=== PATIENT | male | born 1940 | race Caucasian/White ===

== ENCOUNTER 2016-08-03 12:56 | Inpatient (IN) | payer OTHER, MEDICARE ==
[~2016-08-03] VITALS: Ht 180.3 cm; Wt 104.6 kg
[2016-08-03] MEDS ORDERED: PROVENTIL,2.5 MG/3 M IH (14:14)
[2016-08-03] MEDS ORDERED: PRIMIDONE50 MG PO (14:14)
[2016-08-03] MEDS ORDERED: BREO ELLIPTA I1 EACH IH (14:15)
[2016-08-03] MEDS ORDERED: PROAIR HFA8.5 GM IH (14:21)
[2016-08-03] MEDS ORDERED: SPIRIVA1 INHALATI IH (14:23)
[2016-08-03] MEDS ORDERED: METOLAZONE5 MG PO (14:24)
[2016-08-03] MEDS ORDERED: BUMETANIDE1 MG PO ×2 (14:24→16:36)
[2016-08-03] MEDS ORDERED: ALLOPURINOL100 MG PO (14:24)
[2016-08-03] MEDS ORDERED: METOPROLOL SUCC25 MG PO (14:25)
[2016-08-03] MEDS ORDERED: ATORVASTATIN CA20 MG PO (14:26)
[2016-08-03] MEDS ORDERED: ROCALTROL0.25 MCG PO (14:26)
[2016-08-03] MEDS ORDERED: DERMAWERX SDS1 EACH TP (14:27)
[2016-08-03] MEDS ORDERED: COUMADIN1 MG PO (14:28)
[2016-08-03 14:57] LABS: CHLORIDE 104 mEq/L (99-109); POTASSIUM 4.1 mEq/L (3.7-5.4); SODIUM 140 mEq/L (136-147)
[2016-08-03 14:59] LABS: GLUCOSE 65 mg/dL (70-99)
[2016-08-03 15:00] LABS: ANION GAP 17 MEQ/L (2-14)
[2016-08-03 15:03] LABS: GFR ESTIMATE (CALCULATED) 8 mL/min/
[2016-08-03 15:08] LABS: UREA NITROGEN (BUN) 102 mg/dL (9-23)
[2016-08-03 15:11] LABS: TROP-I INTERPRETATION NEGATIVE; TROPONIN-I 0.07 ng/mL (0.0-0.30)
[2016-08-03 15:27] LABS: HEMATOCRIT 26.9 % (38.0-50.0); MCH 30.5 PG (29.0-34.0); MCHC 34.2 G/DL (30.0-36.0); MCV 89.1 FL (86-99); MEAN PLAT.VOLUME 12.5 uM^3 (9.0-12.4); PLATELET COUNT 89 K/uL (156-360); RBC DIS.WIDTH-CV 15.4 % (11.8-14.6); RBC DIS.WIDTH-SD 48.5 % (39-53); RED BLOOD COUNT 3.02 M/uL (4.00-5.50); WHITE BLOOD COUNT 4.7 K/uL (4.1-10.2)
[2016-08-03] MEDS ORDERED: COUMADIN5 MG PO (16:34)
[2016-08-03] MEDS ORDERED: PRESERVISION A1 EAC2 PO (16:37)
[2016-08-03] MEDS ORDERED: ELIQUIS5 MG PO (16:37)
[2016-08-03 18:49] LABS: MAGNESIUM 2.4 mg/dL (1.3-2.7)
[2016-08-03 18:55] LABS: CREATINE KINASE 64 IU/L (1-294)
[2016-08-03 20:14] LABS: ADD MIUA? NO; BILIRUBIN NEGATIVE; BLOOD NEGATIVE; COLOR YELLOW ((YELLOW)); GLUCOSE (STRIP) NEGATIVE; KETONES NEGATIVE; LEUKOCYTES NEGATIVE; NITRITE NEGATIVE; PH, URINE 5.5 (5-8); PROTEIN (STRIP) NEGATIVE; SPECIFIC GRAVITY 1.013 (1.000-1.030); UCUL ADDED? NO; UROBILINOGEN 0.2 MG/DL (0.2-1.0)
[2016-08-03 20:27] LABS: UR CREATININE CONCENTRATION 90.1 MG/DL
[2016-08-03 22:45] VITALS: BP 148/78
[2016-08-04 03:42] VITALS: BP 137/74
[2016-08-04 07:04] LABS: EOSINOPHIL COUNT 0.1 K/uL (0-0.3); LYMPHOCYTE COUNT 0.4 K/uL (1.0-2.8); MONOCYTE (%) 6.5 % (3-12); MONOCYTE COUNT 0.2 K/uL (0-0.8); NEUTROPHIL (%) 78.9 % (45-76); NEUTROPHIL COUNT 2.9 K/uL (1.8-6.4)
[2016-08-04 07:31] LABS: C3 COMPLEMENT 114 MG/DL (58-170); C4 COMPLEMENT 25 MG/DL (10-40)
[2016-08-04 07:45] LABS: ANION GAP 14 MEQ/L (2-14); CHLORIDE 103 MEQ/L (99-109); GFR ESTIMATE (CALCULATED) 8 mL/min/; MAGNESIUM 2.4 mg/dl (1.3-2.7); POTASSIUM 4.2 MEQ/L (3.7-5.4); SAMPLE HEMOLYSIS CHECK 0; SAMPLE ICTERIC CHECK 0; SAMPLE LIPEMIA CHECK 0; SODIUM 139 MEQ/L (136-147); UREA NITROGEN (BUN) 98 mg/dL (9-23); URIC ACID 6.3 mg/dL (3.1-9.2)
[2016-08-04 07:46] LABS: GLUCOSE 106 mg/dL (70-99)
[2016-08-04 07:53] LABS: MCH 29.3 PG (29.0-34.0); MCHC 33.3 G/DL (30.0-36.0); MCV 87.9 FL (86-99); RBC DIS.WIDTH-CV 15.9 % (11.8-14.6); RBC DIS.WIDTH-SD 50.6 % (39-53); RED BLOOD COUNT 2.73 M/uL (4.00-5.50); WHITE BLOOD COUNT 3.7 K/uL (4.1-10.2)
[2016-08-04 07:55] VITALS: BP 126/85
[2016-08-04 08:19] LABS: MEAN PLAT.VOLUME 13.4 uM^3 (9.0-12.4); PLAT.SUFFICIENCY DECREASED; PLATELET COUNT 78 K/uL (156-360); USER ID TLW
[2016-08-04 08:26] LABS: INTER. NORMALIZED RATIO 1.6; PROTHROMBIN TIME 16.6 (9.2-11.2); PTT 52.5 (25-32)
[2016-08-04 11:46] VITALS: BP 128/84
[2016-08-04 11:56] LABS: HBSG INDEX 0.23; HPCA INDEX 0.17
[2016-08-04 11:57] LABS: ANTI-HEPATITIS A VIRUS (IGM) Nonreactive; HAV INDEX 0.27
[2016-08-04 11:58] LABS: ANTI-HEPATITIS B CORE (IGM) Nonreactive; HBC IgM INDEX 0.14
[2016-08-04 12:05] LABS: GLOBULINS 2.1 G/DL (2.3-3.5)
[2016-08-04 12:14] LABS: POINT-OF-CARE METER ID UU14188625
[2016-08-04] MEDS ORDERED: GLIPIZIDE5 MG PO (13:45)
[2016-08-04 15:05] VITALS: BP 132/67
[2016-08-04 20:00] VITALS: BP 143/80
[2016-08-04 22:42] LABS: POINT-OF-CARE METER ID UU14174225
[2016-08-05] VITALS: BP 141/80
[2016-08-05 04:02] VITALS: BP 121/68
[2016-08-05 04:36] LABS: POINT-OF-CARE METER ID UU14188625
[2016-08-05 06:35] LABS: POINT-OF-CARE METER ID UU14188625
[2016-08-05 07:24] LABS: EOSINOPHIL (%) 3.9 % (0-5); EOSINOPHIL COUNT 0.1 K/uL (0-0.3); LYMPHOCYTE COUNT 0.4 K/uL (1.0-2.8); MONOCYTE (%) 9.7 % (3-12); MONOCYTE COUNT 0.4 K/uL (0-0.8); NEUTROPHIL COUNT 2.7 K/uL (1.8-6.4)
[2016-08-05 07:56] LABS: ANION GAP 12 MEQ/L (2-14); CHLORIDE 103 MEQ/L (99-109); GFR ESTIMATE (CALCULATED) 8 mL/min/; GLUCOSE 87 mg/dL (70-99); POTASSIUM 4.2 MEQ/L (3.7-5.4); SAMPLE HEMOLYSIS CHECK 0; SAMPLE ICTERIC CHECK 0; SAMPLE LIPEMIA CHECK 0; SODIUM 138 MEQ/L (136-147)
[2016-08-05 08:01] LABS: UREA NITROGEN (BUN) 107 mg/dL (9-23)
[2016-08-05 08:03] LABS: HEMATOCRIT 22.5 % (38.0-50.0); MCH 29.5 PG (29.0-34.0); MCHC 33.8 G/DL (30.0-36.0); MCV 87.2 FL (86-99); RBC DIS.WIDTH-CV 15.7 % (11.8-14.6); RBC DIS.WIDTH-SD 50.1 % (39-53); RED BLOOD COUNT 2.58 M/uL (4.00-5.50); WHITE BLOOD COUNT 3.6 K/uL (4.1-10.2)
[2016-08-05 08:05] LABS: PLAT.SUFFICIENCY DECREASED; PLATELET COUNT 70 K/uL (156-360); USER ID CL
[2016-08-05 14:32] LABS: ALBUMIN PERCENT 65.1 %; ALPHA-1 GLOBULIN 0.28 G/DL (0.15-0.40); ALPHA-1 PERCENT 4.9 %; ALPHA-2 GLOBULIN 0.49 G/DL (0.45-0.85); ALPHA-2 PERCENT 8.6 %; BETA PERCENT 8.6 %
[2016-08-05 14:33] LABS: ALBUMIN 3.71 G/DL (3.6-4.9); GAMMA PERCENT 12.8 %
[2016-08-05 16:14] VITALS: BP 123/66
[2016-08-05 16:52] LABS: TYPE OF FLUID PLEURAL
[2016-08-05 16:58] LABS: TYPE OF FLUID PLEURAL
[2016-08-05 17:09] LABS: BODY FLUID RBC'S 2000 /MM^3 (0-100); BODY FLUID WBC'S 166 /MM^3 (0-500)
[2016-08-05 17:10] LABS: BODY FLUID RBC'S 12000 /MM^3 (0-100); BODY FLUID WBC'S 221 /MM^3 (0-500)
[2016-08-05 17:31] LABS: BODY FLUID EOSINOPHILS 2 % (0-25); MONO RAW COUNT 52; MONONUCLEAR WBC'S 52 %; POLY RAW COUNT 46; POLYNUCLEAR WBC'S 46 % (0-25)
[2016-08-05 17:34] LABS: BODY FLUID EOSINOPHILS 0 % (0-25); MONO RAW COUNT 60; MONONUCLEAR WBC'S 60 %; POLY RAW COUNT 40; POLYNUCLEAR WBC'S 40 % (0-25)
[2016-08-05 17:52] LABS: BODY FLUID LDH 37 IU/L; BODY FLUID LDH 41 IU/L; BODY FLUID PROTEIN < 3.0 G/DL
[2016-08-05 20:00] VITALS: BP 120/71
[2016-08-05 21:09] LABS: POINT-OF-CARE METER ID UU14188625
[2016-08-06] VITALS: BP 106/64
[2016-08-06 04:00] VITALS: BP 126/67
[2016-08-06 07:01] LABS: POINT-OF-CARE METER ID UU14174225
[2016-08-06 07:32] LABS: EOSINOPHIL (%) 3.5 % (0-5); EOSINOPHIL COUNT 0.2 K/uL (0-0.3); IMMATURE GRANULOCYTE (%) 0.2 % (0.0-0.7); LYMPHOCYTE COUNT 0.5 K/uL (1.0-2.8); MONOCYTE (%) 6.7 % (3-12); MONOCYTE COUNT 0.3 K/uL (0-0.8); NEUTROPHIL (%) 76.9 % (45-76); NEUTROPHIL COUNT 3.3 K/uL (1.8-6.4)
[2016-08-06 07:58] LABS: ANION GAP 13 MEQ/L (2-14); CHLORIDE 103 MEQ/L (99-109); GFR ESTIMATE (CALCULATED) 10 mL/min/; GLUCOSE 92 mg/dL (70-99); SAMPLE HEMOLYSIS CHECK 0; SAMPLE ICTERIC CHECK 0; SAMPLE LIPEMIA CHECK 0; SODIUM 140 MEQ/L (136-147); UREA NITROGEN (BUN) 73 mg/dL (9-23)
[2016-08-06 08:05] LABS: MCH 29.6 PG (29.0-34.0); MCHC 33.5 G/DL (30.0-36.0); MCV 88.5 FL (86-99); MEAN PLAT.VOLUME 12.8 uM^3 (9.0-12.4); PLATELET COUNT 66 K/uL (156-360); RBC DIS.WIDTH-SD 51.1 % (39-53); WHITE BLOOD COUNT 4.3 K/uL (4.1-10.2)
[2016-08-06 08:21] LABS: HEMATOCRIT 23.7 % (38.0-50.0); MCH 29.5 PG (29.0-34.0); MCHC 33.3 G/DL (30.0-36.0); MCV 88.4 FL (86-99); RBC DIS.WIDTH-SD 51.3 % (39-53); RED BLOOD COUNT 2.68 M/uL (4.00-5.50); WHITE BLOOD COUNT 4.3 K/uL (4.1-10.2)
[2016-08-06 08:27] LABS: ANION GAP 14 MEQ/L (2-14); CHLORIDE 104 MEQ/L (99-109); GFR ESTIMATE (CALCULATED) 10 mL/min/; POTASSIUM 3.9 MEQ/L (3.7-5.4); SAMPLE HEMOLYSIS CHECK 0; SAMPLE ICTERIC CHECK 0; SAMPLE LIPEMIA CHECK 0; SODIUM 140 MEQ/L (136-147); UREA NITROGEN (BUN) 72 mg/dL (9-23)
[2016-08-06 08:27] LABS: MEAN PLAT.VOLUME 13.1 uM^3 (9.0-12.4); PLAT.SUFFICIENCY DECREASED
[2016-08-06 08:28] LABS: GLUCOSE 166 mg/dL (70-99)
[2016-08-06 08:34] LABS: PLATELET COUNT UNABLE TO REPORT K/uL (156-360)
[2016-08-06 11:41] VITALS: BP 140/76
[2016-08-06 13:23] VITALS: BP 123/68
[2016-08-06 16:00] VITALS: BP 121/68
[2016-08-06 20:07] VITALS: BP 130/64
[2016-08-07 00:08] VITALS: BP 128/82
[2016-08-07 08:43] LABS: EOSINOPHIL (%) 1.8 % (0-5); EOSINOPHIL COUNT 0.1 K/uL (0-0.3); IMMATURE GRANULOCYTE (%) 0.2 % (0.0-0.7); LYMPHOCYTE COUNT 0.4 K/uL (1.0-2.8); MONOCYTE (%) 8.9 % (3-12); MONOCYTE COUNT 0.5 K/uL (0-0.8); NEUTROPHIL (%) 81.2 % (45-76); NEUTROPHIL COUNT 4.1 K/uL (1.8-6.4)
[2016-08-07 08:48] LABS: HEMATOCRIT 23.5 % (38.0-50.0); MCH 30.2 PG (29.0-34.0); MCHC 33.6 G/DL (30.0-36.0); MCV 89.7 FL (86-99); RBC DIS.WIDTH-CV 16.2 % (11.8-14.6); RED BLOOD COUNT 2.62 M/uL (4.00-5.50)
[2016-08-07 09:00] LABS: ANION GAP 12 MEQ/L (2-14); CHLORIDE 104 MEQ/L (99-109); GFR ESTIMATE (CALCULATED) 13 mL/min/; GLUCOSE 141 mg/dL (70-99); IRON 24 MCG/DL (35-150); POTASSIUM 3.8 MEQ/L (3.7-5.4); SAMPLE HEMOLYSIS CHECK 0; SAMPLE ICTERIC CHECK 0; SAMPLE LIPEMIA CHECK 0; SODIUM 140 MEQ/L (136-147); UREA NITROGEN (BUN) 52 mg/dL (9-23)
[2016-08-07 09:15] LABS: FERRITIN 70 NG/ML (22-322)
[2016-08-07 09:16] LABS: MEAN PLAT.VOLUME 13.1 uM^3 (9.0-12.4); PLAT.SUFFICIENCY DECREASED; PLATELET COUNT 58 K/uL (156-360)
[2016-08-07 09:20] VITALS: BP 137/77
[2016-08-07 12:17] LABS: POINT-OF-CARE USER ID 612031313
[2016-08-07] MEDS ORDERED: METOLAZONE5 MG PO (12:47)
[2016-08-07] MEDS ORDERED: ELIQUIS5 MG PO (12:47)
[2016-08-07] MEDS ORDERED: BUMETANIDE1 MG PO (12:47)
[2016-08-08 21:43] LABS: Neutrophil Cytoplasmic Aby P-ANCA POS (Negative)
== END 2016-08-07 14:35 | disposition home health service (06) | DRG 683 ==
LOC: EME 12:56 → EDOF 17:50 → 5SOUTH 17:50
PROVIDERS: Emergency Medicine; Internal Medicine; Internal Medicine Cardiovascular Disease; Internal Medicine Nephrology; Radiology Diagnostic Radiology; Student in an Organized Health Care Education/Training Program
DX: N17.9 Acute kidney failure, unspecified (principal); J90 Pleural effusion, not elsewhere classified; N04.9 Nephrotic syndrome with unspecified morphologic changes; I13.0 Hypertensive heart and chronic kidney disease with heart failure and stage 1 through stage 4 chronic kidney disease, or unspecified chronic kidney disease; N18.4 Chronic kidney disease, stage 4 (severe); E11.22 Type 2 diabetes mellitus with diabetic chronic kidney disease; R18.8 Other ascites; I50.9 Heart failure, unspecified; D63.1 Anemia in chronic kidney disease; G89.18 Other acute postprocedural pain; J44.9 Chronic obstructive pulmonary disease, unspecified; E78.5 Hyperlipidemia, unspecified; I48.2 Chronic atrial fibrillation; I27.2 Other secondary pulmonary hypertension; F32.9 Major depressive disorder, single episode, unspecified; G25.0 Essential tremor; M10.9 Gout, unspecified; K74.60 Unspecified cirrhosis of liver; K42.9 Umbilical hernia without obstruction or gangrene; E66.9 Obesity, unspecified; Z68.32 Body mass index [BMI] 32.0-32.9, adult; D69.6 Thrombocytopenia, unspecified; Z87.891 Personal history of nicotine dependence; Z79.01 Long term (current) use of anticoagulants
CPT/HCPCS: 36415; 71020; 74176; 76770; 80048; 80048 91; 80061; 80069; 80074; 80076; 81003; 82550; 82550 91; 82570; 82607; 82728; 82746; 82948; 83036 GA; 83540; 83615 91; 83735; 83883 90; 83970; 84156; 84157; 84165; 84439; 84443; 84466; 84484; 84550; 85025; 85027; 85610; 85730; 86021 90; 86038; 86160; 86162 90; 87070; 87075; 87205; 88108; 88305; 89051; 93005; 93306; 94640; 94640 76; 94799; 99202; 99281; 99285; C1894; J0690; J0881; J1644; J1815; J2250; J3010; S0020

== ENCOUNTER → 2016-09-03 | Outpatient (CLI) | payer OTHER, MEDICARE ==
[~2016-09-03] MED LIST: ALLOPURINOL100 MG PO; ATORVASTATIN CA20 MG PO; BREO ELLIPTA I1 EACH IH; BUMETANIDE1 MG PO; COUMADIN1 MG PO; COUMADIN5 MG PO; DERMAWERX SDS1 EACH TP; ELIQUIS5 MG PO; GLIPIZIDE5 MG PO; METOLAZONE5 MG PO; METOPROLOL SUCC25 MG PO; PRESERVISION A1 EAC2 PO; PRIMIDONE50 MG PO; PROAIR HFA8.5 GM IH; PROVENTIL,2.5 MG/3 M IH; ROCALTROL0.25 MCG PO; SPIRIVA1 INHALATI IH
[2016-09-03 08:37] LABS: TYPE OF FLUID PARACENTESIS
[2016-09-03 10:02] LABS: BODY FLUID RBC'S 2000 /MM^3 (0-100); BODY FLUID WBC'S 244 /MM^3 (0-500)
[2016-09-03 10:05] LABS: BODY FLUID EOSINOPHILS 0 % (0-25); MONO RAW COUNT 108; MONONUCLEAR WBC'S 54 %; POLY RAW COUNT 92; POLYNUCLEAR WBC'S 46 % (0-25)
== END | disposition home or self-care (01) ==
LOC: RAD 08-24 13:15
PROVIDERS: Radiology Diagnostic Radiology
PROC: 0W9G3ZZ Drainage of Peritoneal Cavity, Percutaneous Approach (ICD-10-PCS; principal; 2016-09-03)
DX: R18.8 Other ascites (principal); K70.30 Alcoholic cirrhosis of liver without ascites
CPT/HCPCS: 84157; 87070; 87205; 88108; 89051

== ENCOUNTER → 2016-09-15 | Outpatient (CLI) | payer OTHER, MEDICARE ==
[2016-09-15 08:47] LABS: POINT-OF-CARE METER ID UU14174212
[2016-09-15 09:13] LABS: INTER. NORMALIZED RATIO 1.3; PROTHROMBIN TIME 13.5 (9.2-11.2)
== END | disposition home or self-care (01) ==
LOC: OPR 07:49 → EDSTATUS 08:00
PROVIDERS: Internal Medicine Nephrology; Radiology Diagnostic Radiology
PROC: 0TB03ZX Excision of Right Kidney, Percutaneous Approach, Diagnostic (ICD-10-PCS; principal; 2016-09-15)
DX: N18.6 End stage renal disease (principal); R76.0 Raised antibody titer; I12.0 Hypertensive chronic kidney disease with stage 5 chronic kidney disease or end stage renal disease; E11.22 Type 2 diabetes mellitus with diabetic chronic kidney disease; Z87.891 Personal history of nicotine dependence
CPT/HCPCS: 77012; 82948; 85610; 85730; 88305; 88313 90; 88346 90; 88348 90; J3010

== ENCOUNTER 2016-10-04 07:56 | Day surgery (SDC) | payer OTHER, MEDICARE ==
[~2016-10-04] VITALS: Ht 181.6 cm; Wt 94.3 kg
[~2016-10-04 07:56] MED LIST changes: +VITAMIN D-32000 UNI2 PO
[2016-10-04 09:10] LABS: HEMATOCRIT 34.5 % (38.0-50.0); MCH 28.8 PG (29.0-34.0); MCHC 31.6 G/DL (30.0-36.0); MEAN PLAT.VOLUME 11.1 uM^3 (9.0-12.4); PLATELET COUNT 100 K/uL (156-360); RBC DIS.WIDTH-CV 15.1 % (11.8-14.6); RBC DIS.WIDTH-SD 49.9 % (39-53); RED BLOOD COUNT 3.79 M/uL (4.00-5.50); WHITE BLOOD COUNT 3.9 K/uL (4.1-10.2)
[2016-10-04 09:17] VITALS: BP 145/88
[2016-10-04 09:28] LABS: ANION GAP 12 MEQ/L (2-14); CHLORIDE 98 MEQ/L (99-109); POTASSIUM 3.1 MEQ/L (3.7-5.4); SAMPLE HEMOLYSIS CHECK 0; SAMPLE ICTERIC CHECK 0; SAMPLE LIPEMIA CHECK 0; SODIUM 141 MEQ/L (136-147)
[2016-10-04 09:33] LABS: GFR ESTIMATE (CALCULATED) 18 mL/min/; GLUCOSE 69 mg/dL (70-99); UREA NITROGEN (BUN) 24 mg/dL (9-23)
[2016-10-04 10:20] LABS: METH RESISTANT S AUREUS PCR NEGATIVE (NEGATIVE)
[2016-10-04 10:23] LABS: PROBE CHECK PASS; SPECIMEN PROCESSING CONTROL PASS
[2016-10-04 12:00] LABS: POINT-OF-CARE METER ID UU13113675
[2016-10-04 13:22] LABS: POINT-OF-CARE METER ID UU13113675
[2016-10-04 13:25] VITALS: BP 133/62
[2016-10-04 14:42] VITALS: BP 128/59
== END 2016-10-04 15:20 | disposition home or self-care (01) ==
LOC: SDC 07:56
PROVIDERS: Surgery
DX: I13.2 Hypertensive heart and chronic kidney disease with heart failure and with stage 5 chronic kidney disease, or end stage renal disease (principal); N18.6 End stage renal disease; Z99.2 Dependence on renal dialysis; I50.9 Heart failure, unspecified; J44.9 Chronic obstructive pulmonary disease, unspecified; I48.91 Unspecified atrial fibrillation; E11.22 Type 2 diabetes mellitus with diabetic chronic kidney disease; Z79.84 Long term (current) use of oral hypoglycemic drugs; Z79.01 Long term (current) use of anticoagulants; Z87.891 Personal history of nicotine dependence
CPT/HCPCS: 80048; 82948; 85027; 87641; 94640; 94640 76; J0690; J1644; J2250; J2720

== ENCOUNTER → 2016-11-05 | Outpatient (CLI) | payer OTHER, MEDICARE | END | disposition home or self-care (01) | LOC: RAD 08:16 | PROC: 0W9G3ZZ Drainage of Peritoneal Cavity, Percutaneous Approach (ICD-10-PCS; principal; 2016-11-05) | DX: K70.31 Alcoholic cirrhosis of liver with ascites (principal); N18.6 End stage renal disease ==

== ENCOUNTER → 2016-12-10 | Outpatient (CLI) | payer OTHER, MEDICARE | END | disposition home or self-care (01) | LOC: AMB 09:20 | PROC: 02PYX3Z Removal of Infusion Device from Great Vessel, External Approach (ICD-10-PCS; principal; 2016-12-10) | DX: Z45.2 Encounter for adjustment and management of vascular access device (principal); N18.6 End stage renal disease; Z99.2 Dependence on renal dialysis ==

== ENCOUNTER → 2016-12-24 | Outpatient (CLI) | payer OTHER, MEDICARE ==
[~2016-12-24] MED LIST changes: +CALCIUM ACETAT667 MG PO
== END | disposition home or self-care (01) ==
LOC: RAD 08:08
PROC: 0W9G3ZZ Drainage of Peritoneal Cavity, Percutaneous Approach (ICD-10-PCS; principal; 2016-12-24)
DX: K70.31 Alcoholic cirrhosis of liver with ascites (principal)
CPT/HCPCS: 49083

== ENCOUNTER → 2017-02-23 | Outpatient (CLI) | payer OTHER, MEDICARE | END | disposition home or self-care (01) | LOC: RAD 08:03 | PROC: 0W9G3ZZ Drainage of Peritoneal Cavity, Percutaneous Approach (ICD-10-PCS; principal; 2017-02-23) | DX: K70.30 Alcoholic cirrhosis of liver without ascites (principal); R18.8 Other ascites; D53.9 Nutritional anemia, unspecified; D69.6 Thrombocytopenia, unspecified | CPT/HCPCS: 49083 ==

== ENCOUNTER 2017-10-07 09:30 | Day surgery (SDC) | payer OTHER, MEDICARE ==
[~2017-10-07] VITALS: Ht 181.6 cm; Wt 83.5 kg
[~2017-10-07 09:30] MED LIST changes: +RENAPLEX-D TAB1 EACH PO
== END 2017-10-07 11:45 | disposition home or self-care (01) ==
LOC: CATH 09:30
PROVIDERS: Surgery
DX: T82.858A Stenosis of other vascular prosthetic devices, implants and grafts, initial encounter (principal); I12.0 Hypertensive chronic kidney disease with stage 5 chronic kidney disease or end stage renal disease; E11.22 Type 2 diabetes mellitus with diabetic chronic kidney disease; N18.6 End stage renal disease; Z99.2 Dependence on renal dialysis; I48.91 Unspecified atrial fibrillation; M19.90 Unspecified osteoarthritis, unspecified site; J44.9 Chronic obstructive pulmonary disease, unspecified; Z87.891 Personal history of nicotine dependence; Z79.01 Long term (current) use of anticoagulants; Z79.84 Long term (current) use of oral hypoglycemic drugs; Z79.52 Long term (current) use of systemic steroids
CPT/HCPCS: 82948; 87641; C1725; C1769; C1894; J1644; J2250; J3010

== ENCOUNTER 2017-12-13 12:01 | Inpatient (IN) | payer OTHER, MEDICARE ==
[~2017-12-13] VITALS: Ht 180.3 cm; Wt 81.1 kg
[2017-12-13 12:52] LABS: HEMATOCRIT 25.1 % (38.0-50.0); HEMOGLOBIN 8.4 G/DL (12.5-16.6); MCH 30.5 PG (29.0-34.0); MCHC 33.5 G/DL (30.0-36.0); MCV 91.3 FL (86-99); PLATELET COUNT 133 K/uL (156-360); RBC DIS.WIDTH-CV 18.2 % (11.8-14.6); RBC DIS.WIDTH-SD 59.9 % (39-53); RED BLOOD COUNT 2.75 M/uL (4.00-5.50); WHITE BLOOD COUNT 6.1 K/uL (4.1-10.2)
[2017-12-13 13:24] LABS: CHLORIDE 92 MEQ/L (99-109); CREATININE 3.6 MG/DL (0.6-1.3); GFR ESTIMATE (CALCULATED) 17 mL/min/ (58.99-99999); GLUCOSE 99 mg/dL (70-99); POTASSIUM 4.2 MEQ/L (3.7-5.4); SODIUM 137 MEQ/L (136-147); UREA NITROGEN (BUN) 22 mg/dL (9-23)
[2017-12-13 14:02] LABS: TROP-I INTERPRETATION NEGATIVE; TROPONIN-I 0.09 ng/mL (0.0-0.30)
[2017-12-13 17:41] VITALS: BP 121/59
[2017-12-13] MEDS ORDERED: BUMETANIDE2 MG PO (19:03)
[2017-12-13] MEDS ORDERED: REFRESH TEARS15 ML BOTH EYES (19:10)
[2017-12-13 19:56] LABS: HEMATOCRIT 23.2 % (38.0-50.0); HEMOGLOBIN 7.5 G/DL (12.5-16.6); MCV 92.4 FL (86-99)
[2017-12-13 19:58] VITALS: BP 111/55
[2017-12-13 23:36] VITALS: BP 106/54
[2017-12-14 05:46] LABS: BASOPHIL (%) 0.5 % (0-1); EOSINOPHIL (%) 3.2 % (0-5); EOSINOPHIL COUNT 0.2 K/uL (0-0.3); HEMATOCRIT 22.9 % (38.0-50.0); HEMOGLOBIN 7.4 G/DL (12.5-16.6); IMMATURE GRANULOCYTE (%) 0.3 % (0.0-0.7); LYMPHOCYTE (%) 13.5 % (15-42); LYMPHOCYTE COUNT 0.8 K/uL (1.0-2.8); MCHC 32.3 G/DL (30.0-36.0); MCV 92.7 FL (86-99); MONOCYTE (%) 12.2 % (3-12); MONOCYTE COUNT 0.8 K/uL (0-0.8); NEUTROPHIL (%) 70.3 % (45-76); NEUTROPHIL COUNT 4.4 K/uL (1.8-6.4); PLATELET COUNT 120 K/uL (156-360); RBC DIS.WIDTH-CV 18.3 % (11.8-14.6); RBC DIS.WIDTH-SD 60.7 % (39-53); RED BLOOD COUNT 2.47 M/uL (4.00-5.50); WHITE BLOOD COUNT 6.2 K/uL (4.1-10.2)
[2017-12-14 06:20] LABS: ALBUMIN 3.9 G/DL (3.2-4.8); ALKALINE PHOSPHATASE 66 IU/L (3-129); ALT (GPT) 12 IU/L (3-49); AST (GOT) 13 IU/L (2-34); CHLORIDE 93 MEQ/L (99-109); GFR ESTIMATE (CALCULATED) 11 mL/min/ (58.99-99999); GLUCOSE 83 mg/dL (70-99); PHOSPHORUS 4.9 mg/dL (2.5-4.9); POTASSIUM 4.9 MEQ/L (3.7-5.4); SODIUM 137 MEQ/L (136-147); TOTAL BILIRUBIN 0.6 MG/DL (0.0-1.0); TOTAL PROTEIN 5.6 G/DL (6.4-8.3)
[2017-12-14 06:22] LABS: CREATININE 5.2 MG/DL (0.6-1.3); UREA NITROGEN (BUN) 37 mg/dL (9-23)
[2017-12-14 06:55] VITALS: BP 108/55
[2017-12-14 08:59] VITALS: BP 122/56
[2017-12-14 09:34] LABS: HEMOGLOBIN A1c (GLYCOHEMOGLOB) 4.8 % (Below 5.7)
[2017-12-14 10:00] VITALS: BP 119/58
[2017-12-14 11:00] VITALS: BP 114/58
[2017-12-14 13:28] LABS: HEMOGLOBIN 8.1 G/DL (12.5-16.6); MCV 90.9 FL (86-99)
[2017-12-14 15:00] VITALS: BP 109/59; BP 158/74
[2017-12-15 00:11] VITALS: BP 106/54
[2017-12-15 06:17] LABS: HEMATOCRIT 24.1 % (38.0-50.0); HEMOGLOBIN 8.1 G/DL (12.5-16.6); MCH 30.1 PG (29.0-34.0); MCHC 33.6 G/DL (30.0-36.0); MCV 89.6 FL (86-99); PLATELET COUNT 119 K/uL (156-360); RBC DIS.WIDTH-CV 18.3 % (11.8-14.6); RBC DIS.WIDTH-SD 58.4 % (39-53); RED BLOOD COUNT 2.69 M/uL (4.00-5.50); WHITE BLOOD COUNT 5.5 K/uL (4.1-10.2)
[2017-12-15 06:42] VITALS: BP 120/58
[2017-12-15 06:58] LABS: ALBUMIN 3.7 G/DL (3.2-4.8); CHLORIDE 89 MEQ/L (99-109); GFR ESTIMATE (CALCULATED) 9 mL/min/ (58.99-99999); GLUCOSE 81 mg/dL (70-99); PHOSPHORUS 5.6 mg/dL (2.5-4.9); POTASSIUM 4.9 MEQ/L (3.7-5.4); SODIUM 132 MEQ/L (136-147); UREA NITROGEN (BUN) 45 mg/dL (9-23)
[2017-12-15 07:04] LABS: CREATININE 6.7 MG/DL (0.6-1.3)
[2017-12-15 11:21] LABS: HEPATITIS B SURFACE ANTIGEN Nonreactive
== END 2017-12-15 16:41 | disposition home or self-care (01) | DRG 377 ==
LOC: EME 12:01 → EDOF 14:01 → ENRESERV 14:02 → 5EAST 16:22
PROVIDERS: Emergency Medicine; Hospitalist; Internal Medicine Nephrology; Physician Assistant
PROC: 30233N1 Transfusion of Nonautologous Red Blood Cells into Peripheral Vein, Percutaneous Approach (ICD-10-PCS; principal; 2017-12-14)
PROC: 5A1D70Z Performance of Urinary Filtration, Intermittent, Less than 6 Hours Per Day (ICD-10-PCS; 2017-12-15)
DX: K92.2 Gastrointestinal hemorrhage, unspecified (principal); N18.6 End stage renal disease; T45.515A Adverse effect of anticoagulants, initial encounter; D68.32 Hemorrhagic disorder due to extrinsic circulating anticoagulants; I48.2 Chronic atrial fibrillation; D63.8 Anemia in other chronic diseases classified elsewhere; I13.2 Hypertensive heart and chronic kidney disease with heart failure and with stage 5 chronic kidney disease, or end stage renal disease; E11.22 Type 2 diabetes mellitus with diabetic chronic kidney disease; I50.9 Heart failure, unspecified; Z99.2 Dependence on renal dialysis; J44.9 Chronic obstructive pulmonary disease, unspecified; Z87.891 Personal history of nicotine dependence; D69.6 Thrombocytopenia, unspecified; K74.60 Unspecified cirrhosis of liver; Z79.01 Long term (current) use of anticoagulants; F32.9 Major depressive disorder, single episode, unspecified; K59.00 Constipation, unspecified
CPT/HCPCS: 71046; 80048; 80053; 80069; 81003; 82948; 83036; 84100; 84484; 85014; 85018; 85025; 85027; 85610; 85730; 86850; 86900; 86901; 86920; 87340; 93005; 94640; 94799; 99281; 99285; C9113; J0881; J1815; P9016

== ENCOUNTER → 2017-12-23 | Outpatient (CLI) | payer OTHER, MEDICARE ==
[~2017-12-23] VITALS: Ht 180.3 cm; Wt 81.1 kg
[~2017-12-23] MED LIST changes: +BUMETANIDE2 MG PO; +REFRESH TEARS15 ML BOTH EYES
== END | disposition home or self-care (01) ==
LOC: AMB 12:59
PROC: 0DB68ZX Excision of Stomach, Via Natural or Artificial Opening Endoscopic, Diagnostic (ICD-10-PCS; principal; 2017-12-23)
DX: D64.9 Anemia, unspecified (principal); K29.60 Other gastritis without bleeding; K70.31 Alcoholic cirrhosis of liver with ascites; F10.11 Alcohol abuse, in remission
CPT/HCPCS: 88305; 88342 TC; J2250